=== PATIENT | male | born 1995 | race Two or more races ===

== ENCOUNTER 2018-10-13 19:54 | Emergency (ER) | payer OTHER ==
[~2018-10-13] VITALS: Ht 165.1 cm; Wt 61.2 kg
== END 2018-10-13 22:15 | disposition home or self-care (01) ==
LOC: ER 19:54
DX: M65.4 Radial styloid tenosynovitis [de Quervain] (principal)

== ENCOUNTER 2018-10-16 09:43 | Outpatient (CLI) | payer OTHER | END 2018-10-16 09:50 | disposition home or self-care (01) | LOC: RAD 501 09:43 | DX: M79.641 Pain in right hand (principal); M79.644 Pain in right finger(s) ==